=== PATIENT | male | born 1960 | race Caucasian/White ===

== ENCOUNTER 2018-04-12 11:58 | Emergency (ER) | payer OTHER ==
[2018-04-12 12:08] VITALS: BP 176/126
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
[2018-04-12] MEDS ORDERED: ACETAMINOPHEN 325 MG TAB PO ONE (12:52)
== END 2018-04-12 12:43 | disposition home or self-care (01) ==
DX: S00.11XA Contusion of right eyelid and periocular area, initial encounter (principal); I10 Essential (primary) hypertension; Y04.2XXA Assault by strike against or bumped into by another person, initial encounter; Y93.B9 Activity, other involving muscle strengthening exercises; Y99.8 Other external cause status; Y92.39 Other specified sports and athletic area as the place of occurrence of the external cause